=== PATIENT | female | born 1970 | race Caucasian/White ===

== ENCOUNTER 2018-01-17 20:55 | Emergency (ER) | payer MEDICAID, SELFPAY ==
[~2018-01-17] VITALS: Ht 162.6 cm; Wt 107.3 kg
[2018-01-17] MEDS ORDERED: arthritis med PO (21:11)
[2018-01-17] MEDS ORDERED: SIMV5TAB5 PO (21:11)
[2018-01-17] MEDS ORDERED: OMEP-110 PO (21:11)
[2018-01-17] MEDS ORDERED: METF500T17 PO (21:11)
[2018-01-17 21:33] LABS: HCG UR SG 1.011 (1.003-1.030); MICROSCOPIC AUTO
[2018-01-17 21:34] LABS: CULTURE INDICATED? YES
[2018-01-17 21:37] LABS: MEAN CORPUSCULAR HEMOGLOBIN 29.7 pg (27.0-34.8); MEAN CORPUSCULAR HGB CONC 33.3 g/dL (32.4-35.8); MEAN CORPUSCULAR VOLUME 89.3 fL (80-100); MEAN PLATELET VOLUME 7.8 fL (7.4-10.4); PLATELET COUNT 292 x10^3/uL (130-400); RED BLOOD COUNT 3.86 x10^6/uL (3.82-5.3); RED CELL DISTRIBUTION WIDTH 15.2 % (9.6-15.2)
[2018-01-17] MEDS ORDERED: IBUPROFEN 200 MG TABLET ONE (21:40)
[2018-01-17] MEDS ORDERED: PHENAZOPYRIDINE 200 MG TABLET ONE (21:40)
[2018-01-17] MEDS ORDERED: ONDANSETRON ODT 4 MG ONE (21:40)
[2018-01-17] MEDS ORDERED: HYDROcodone/APAP 5/325 TABLET ONE ×2 (21:41→22:18)
[2018-01-17 21:48] LABS: ALANINE AMINOTRANSFERASE 31 U/L (12-78); ALBUMIN 2.7 g/dL (3.4-5.0); ANION GAP 8 mmol/L (5-15); CALCIUM 8.3 mg/dL (8.5-10.1); CHLORIDE 107 mmol/L (98-107); CREATININE 0.97 mg/dL (0.55-1.02)
[2018-01-17 21:50] LABS: ALKALINE PHOSPHATASE 108 U/L (45-117); BILIRUBIN,TOTAL 0.6 mg/dL (0.2-1.0); TOTAL PROTEIN 6.9 g/dL (6.4-8.2)
[2018-01-17 21:59] LABS: BASOPHILS # (AUTO) 0.01 x10^3/uL (0-0.1); BASOPHILS % (AUTO) 0 % (0-1); EOSINOPHILS # (AUTO) 0.15 x10^3/uL (0-0.4); EOSINOPHILS % (AUTO) 1 % (1-7); LYMPHOCYTES # (AUTO) 1.44 x10^3/uL (1-3.4); LYMPHOCYTES % (AUTO) 8 % (22-44); MD SCAN; MONOCYTES # (AUTO) 0.57 x10^3/uL (0.2-0.8); MONOCYTES % (AUTO) 3 % (2-9); NEUTROPHILS # (AUTO) 15.88 x10^3/uL (1.8-6.8); NEUTROPHILS % (AUTO) 88 % (42-75)
[2018-01-17] MEDS ORDERED: IBUPROFEN 200 MG TABLET PO ONE (22:00)
[2018-01-17] MEDS ORDERED: HYDROcodone/APAP 5/325 TABLET PO PRN (22:00)
[2018-01-17] MEDS ORDERED: CEFTRIAXONE 1,000 MG IM ONE (22:00)
[2018-01-17] MEDS ORDERED: ONDANSETRON ODT 4 MG PO ONE (22:00)
[2018-01-17] MEDS ORDERED: PHENAZOPYRIDINE 200 MG TABLET PO ONE (22:00)
[2018-01-17] MEDS ORDERED: HYDROcodone/APAP 5/325 TABLET PO ONE (22:00)
[2018-01-17] MEDS ORDERED: LIDOCAINE-MPF 2%, 2ML ONE (22:17)
[2018-01-17] MEDS ORDERED: CEFTRIAXONE 1,000 MG ONE (22:18)
[2018-01-17 22:32] VITALS: BP 124/68
== END 2018-01-17 22:34 | disposition home or self-care (01) ==
LOC: ED 22:16
DX: N30.00 Acute cystitis without hematuria (principal); E11.65 Type 2 diabetes mellitus with hyperglycemia; I10 Essential (primary) hypertension; E78.5 Hyperlipidemia, unspecified; Z90.49 Acquired absence of other specified parts of digestive tract
CPT/HCPCS: 36415; 80053; 81001; 81025; 82962; 83690; 85025; 87077; 87086; 87147; 87186; 96372; 99284; J0696; Q0162

== ENCOUNTER 2018-03-06 12:51 | Inpatient (IN) | payer MEDICAID ==
[~2018-03-06] VITALS: Ht 162.6 cm; Wt 103.2 kg
[~2018-03-06 12:51] MED LIST: METF500T17 PO; OMEP-110 PO; SIMV5TAB5 PO; arthritis med PO
[2018-03-06] MEDS ORDERED: SODIUM CHLORIDE 0.9% 1,000ML IVBOLUS ONE (16:00)
[2018-03-06] MEDS ORDERED: SODIUM CHLORIDE FLUSH 10ML SYR IVF ONE (16:00)
[2018-03-06] MEDS ORDERED: HYDROmorphone 1 MG/ML, 1ML IVPush PRN (16:00)
[2018-03-06 16:03] LABS: CULTURE INDICATED? YES; MICROSCOPIC INDICATED
[2018-03-06 16:14] LABS: BASOPHILS # (AUTO) 0.04 x10^3/uL (0-0.1); BASOPHILS % (AUTO) 0 % (0-1); EOSINOPHILS # (AUTO) 0.07 x10^3/uL (0-0.4); EOSINOPHILS % (AUTO) 1 % (1-7); LYMPHOCYTES % (AUTO) 20 % (22-44); MD NO; MEAN CORPUSCULAR HEMOGLOBIN 29.2 pg (27.0-34.8); MEAN CORPUSCULAR HGB CONC 33.1 g/dL (32.4-35.8); MEAN CORPUSCULAR VOLUME 88.1 fL (80-100); MEAN PLATELET VOLUME 7.6 fL (7.4-10.4); MONOCYTES # (AUTO) 1.24 x10^3/uL (0.2-0.8); MONOCYTES % (AUTO) 8 % (2-9); NEUTROPHILS % (AUTO) 72 % (42-75); PLATELET COUNT 379 x10^3/uL (130-400); RED BLOOD COUNT 3.99 x10^6/uL (3.82-5.3); RED CELL DISTRIBUTION WIDTH 15.5 % (9.6-15.2)
[2018-03-06 16:27] LABS: CHLORIDE 99 mmol/L (98-107)
[2018-03-06 16:28] LABS: ALANINE AMINOTRANSFERASE 29 U/L (12-78); ALBUMIN 3.3 g/dL (3.4-5.0); ANION GAP 8 mmol/L (5-15); CALCIUM 8.8 mg/dL (8.5-10.1); CREATININE 0.93 mg/dL (0.55-1.02)
[2018-03-06] MEDS ORDERED: HYDROmorphone 2 MG/ML, 1ML ONE (16:28)
[2018-03-06 16:32] LABS: ALKALINE PHOSPHATASE 133 U/L (45-117); BILIRUBIN,TOTAL 0.6 mg/dL (0.2-1.0); TOTAL PROTEIN 8.7 g/dL (6.4-8.2)
[2018-03-06] MEDS ORDERED: CEFTRIAXONE PMX 1GM/50ML 50 ML IVPB ONE (18:00)
[2018-03-06] MEDS ORDERED: BISACODYL 10 MG SUPP PR PRN (19:30)
[2018-03-06] MEDS ORDERED: ACETAMINOPHEN 325 MG TABLET PO PRN (19:30)
[2018-03-06] MEDS ORDERED: POLYETHYLENE GLYCOL 17 GM PACKET PO PRN (19:30)
[2018-03-06] MEDS ORDERED: MELO15TA24 PO (19:33)
[2018-03-06] MEDS ORDERED: AMIT25TA PO (19:35)
[2018-03-06 19:40] VITALS: BP 106/67
[2018-03-06 19:52] VITALS: BP 106/67
[2018-03-06] MEDS: KETOROLAC 30 MG/1 ML IVPush PRN (20:12)
[2018-03-06] MEDS: HEPARIN 5,000 UNITS/ML, 1ML SQ SCH (20:12)
[2018-03-06 20:17] LABS: HEMOGLOBIN A1C 6.6 % (4.2-6.3)
[2018-03-06] MEDS: SODIUM CHLORIDE 0.9% 1,000 ML IV SCH (20:29)
[2018-03-06] MEDS: AMITRIPTYLINE 25 MG TABLET PO SCH (20:39)
[2018-03-06] MEDS: ONDANSETRON ODT 4 MG PO PRN (20:39)
[2018-03-06] MEDS: metFORMIN 500 MG TABLET PO SCH (20:40)
[2018-03-06] MEDS: SIMVASTATIN 20 MG TABLET PO SCH (20:40)
[2018-03-06] MEDS ORDERED: OMEPRAZOLE 20 MG CAPSULE.DR ONE (21:02)
[2018-03-06] MEDS: CEFTRIAXONE PMX 1GM/50ML 50 ML IV SCH (21:03)
[2018-03-06] MEDS: OMEPRAZOLE 20 MG CAPSULE.DR PO SCH (21:03)
[2018-03-07] MEDS: KETOROLAC 30 MG/1 ML IVPush PRN ×4 (02:08→22:58)
[2018-03-07 02:15] VITALS: BP 98/63
[2018-03-07] MEDS: SODIUM CHLORIDE 0.9% 1,000 ML IV SCH ×3 (04:08→22:03)
[2018-03-07] MEDS: HEPARIN 5,000 UNITS/ML, 1ML SQ SCH ×3 (04:09→20:26)
[2018-03-07 05:26] LABS: ALANINE AMINOTRANSFERASE 31 U/L (12-78); ALBUMIN 2.6 g/dL (3.4-5.0); ANION GAP 7 mmol/L (5-15); BASOPHILS # (AUTO) 0.05 x10^3/uL (0-0.1); BASOPHILS % (AUTO) 1 % (0-1); CALCIUM 8.2 mg/dL (8.5-10.1); CHLORIDE 106 mmol/L (98-107); CREATININE 0.89 mg/dL (0.55-1.02); EOSINOPHILS # (AUTO) 0.22 x10^3/uL (0-0.4); EOSINOPHILS % (AUTO) 2 % (1-7); LYMPHOCYTES # (AUTO) 2.67 x10^3/uL (1-3.4); LYMPHOCYTES % (AUTO) 25 % (22-44); MD NO; MEAN CORPUSCULAR HEMOGLOBIN 29.2 pg (27.0-34.8); MEAN CORPUSCULAR HGB CONC 32.7 g/dL (32.4-35.8); MEAN CORPUSCULAR VOLUME 89.4 fL (80-100); MEAN PLATELET VOLUME 7.5 fL (7.4-10.4); MONOCYTES # (AUTO) 1.02 x10^3/uL (0.2-0.8); MONOCYTES % (AUTO) 10 % (2-9); NEUTROPHILS # (AUTO) 6.84 x10^3/uL (1.8-6.8); NEUTROPHILS % (AUTO) 63 % (42-75); PLATELET COUNT 331 x10^3/uL (130-400); RED BLOOD COUNT 3.68 x10^6/uL (3.82-5.3); RED CELL DISTRIBUTION WIDTH 15.5 % (9.6-15.2)
[2018-03-07 05:29] LABS: ALKALINE PHOSPHATASE 126 U/L (45-117); BILIRUBIN,TOTAL 0.4 mg/dL (0.2-1.0); TOTAL PROTEIN 7.1 g/dL (6.4-8.2)
[2018-03-07 07:10] VITALS: BP 95/60
[2018-03-07] MEDS: metFORMIN 500 MG TABLET PO SCH ×2 (08:36→16:14)
[2018-03-07] MEDS: OMEPRAZOLE 20 MG CAPSULE.DR PO SCH (08:37)
[2018-03-07] MEDS: SENNA/DOCUSATE TABLET PO SCH (08:38)
[2018-03-07] MEDS ORDERED: MELOXICAM 15 MG TABLET PO SCH (09:00)
[2018-03-07] MEDS: ONDANSETRON ODT 4 MG PO PRN ×2 (10:51→21:03)
[2018-03-07 13:33] VITALS: BP 102/64
[2018-03-07 19:20] VITALS: BP 104/69
[2018-03-07] MEDS: SIMVASTATIN 20 MG TABLET PO SCH (20:26)
[2018-03-07] MEDS: AMITRIPTYLINE 25 MG TABLET PO SCH (20:26)
[2018-03-07] MEDS: CEFTRIAXONE PMX 1GM/50ML 50 ML IV SCH (20:26)
[2018-03-08 01:19] VITALS: BP 117/65
[2018-03-08 04:20] LABS: BASOPHILS # (AUTO) 0.02 x10^3/uL (0-0.1); BASOPHILS % (AUTO) 0 % (0-1); EOSINOPHILS # (AUTO) 0.25 x10^3/uL (0-0.4); EOSINOPHILS % (AUTO) 3 % (1-7); LYMPHOCYTES # (AUTO) 2.86 x10^3/uL (1-3.4); LYMPHOCYTES % (AUTO) 31 % (22-44); MD NO; MEAN CORPUSCULAR HEMOGLOBIN 29.3 pg (27.0-34.8); MEAN CORPUSCULAR VOLUME 88.9 fL (80-100); MEAN PLATELET VOLUME 7.7 fL (7.4-10.4); MONOCYTES # (AUTO) 0.74 x10^3/uL (0.2-0.8); MONOCYTES % (AUTO) 8 % (2-9); NEUTROPHILS # (AUTO) 5.51 x10^3/uL (1.8-6.8); NEUTROPHILS % (AUTO) 59 % (42-75); PLATELET COUNT 347 x10^3/uL (130-400); RED BLOOD COUNT 3.44 x10^6/uL (3.82-5.3); RED CELL DISTRIBUTION WIDTH 14.6 % (9.6-15.2)
[2018-03-08] MEDS: HEPARIN 5,000 UNITS/ML, 1ML SQ SCH ×3 (04:27→20:09)
[2018-03-08 04:29] LABS: ANION GAP 9 mmol/L (5-15); CALCIUM 7.9 mg/dL (8.5-10.1); CHLORIDE 109 mmol/L (98-107); CREATININE 0.69 mg/dL (0.55-1.02)
[2018-03-08] MEDS: SODIUM CHLORIDE 0.9% 1,000 ML IV SCH ×3 (05:25→21:35)
[2018-03-08] MEDS: KETOROLAC 30 MG/1 ML IVPush PRN ×3 (05:25→20:08)
[2018-03-08 07:16] VITALS: BP 134/70
[2018-03-08] MEDS: metFORMIN 500 MG TABLET PO SCH ×2 (07:38→17:05)
[2018-03-08] MEDS: SENNA/DOCUSATE TABLET PO SCH (07:38)
[2018-03-08] MEDS: OMEPRAZOLE 20 MG CAPSULE.DR PO SCH (07:38)
[2018-03-08] MEDS: ERTAPENEM 1 GM in SODIUM CHLORIDE 0.9% 50 ML IV SCH (12:01)
[2018-03-08] MEDS ORDERED: FLUCONAZOLE 100 MG TABLET PO ONE (12:30)
[2018-03-08 13:58] VITALS: BP 121/77
[2018-03-08] MEDS: AMITRIPTYLINE 25 MG TABLET PO SCH (20:08)
[2018-03-08] MEDS: SIMVASTATIN 20 MG TABLET PO SCH (20:09)
[2018-03-08 20:30] VITALS: BP 132/93
[2018-03-09 01:34] VITALS: BP 114/73
[2018-03-09] MEDS: HEPARIN 5,000 UNITS/ML, 1ML SQ SCH ×3 (04:19→19:57)
[2018-03-09] MEDS: SODIUM CHLORIDE 0.9% 1,000 ML IV SCH (04:21)
[2018-03-09 07:10] VITALS: BP 110/70
[2018-03-09] MEDS: OMEPRAZOLE 20 MG CAPSULE.DR PO SCH (08:09)
[2018-03-09] MEDS: SENNA/DOCUSATE TABLET PO SCH (08:09)
[2018-03-09] MEDS: KETOROLAC 30 MG/1 ML IVPush PRN ×2 (08:10→17:17)
[2018-03-09] MEDS: metFORMIN 500 MG TABLET PO SCH ×2 (08:10→17:17)
[2018-03-09] MEDS: ERTAPENEM 1 GM in SODIUM CHLORIDE 0.9% 50 ML IV SCH (12:29)
[2018-03-09 13:58] VITALS: BP 126/81
[2018-03-09] MEDS: AMITRIPTYLINE 25 MG TABLET PO SCH (19:56)
[2018-03-09] MEDS: SIMVASTATIN 20 MG TABLET PO SCH (19:56)
[2018-03-09 20:01] VITALS: BP 118/77
[2018-03-10 01:30] VITALS: BP 110/72
[2018-03-10] MEDS: HEPARIN 5,000 UNITS/ML, 1ML SQ SCH ×3 (04:40→21:33)
[2018-03-10 07:12] VITALS: BP 114/74
[2018-03-10] MEDS: OMEPRAZOLE 20 MG CAPSULE.DR PO SCH (08:19)
[2018-03-10] MEDS: SENNA/DOCUSATE TABLET PO SCH (08:20)
[2018-03-10] MEDS: metFORMIN 500 MG TABLET PO SCH ×2 (08:20→16:39)
[2018-03-10] MEDS: KETOROLAC 30 MG/1 ML IVPush PRN ×3 (08:26→22:40)
[2018-03-10 08:38] VITALS: BP 105/69
[2018-03-10] MEDS: ERTAPENEM 1 GM in SODIUM CHLORIDE 0.9% 50 ML IV SCH (13:30)
[2018-03-10 14:59] VITALS: BP 111/74
[2018-03-10 20:38] VITALS: BP 130/84
[2018-03-10] MEDS: AMITRIPTYLINE 25 MG TABLET PO SCH (21:33)
[2018-03-10] MEDS: SIMVASTATIN 20 MG TABLET PO SCH (21:33)
[2018-03-11 02:09] VITALS: BP 144/79
[2018-03-11] MEDS: KETOROLAC 30 MG/1 ML IVPush PRN (04:46)
[2018-03-11] MEDS: HEPARIN 5,000 UNITS/ML, 1ML SQ SCH ×3 (04:46→21:17)
[2018-03-11] MEDS ORDERED: IBUPROFEN 200 MG TABLET PO PRN (07:30)
[2018-03-11] MEDS: OMEPRAZOLE 20 MG CAPSULE.DR PO SCH (07:39)
[2018-03-11] MEDS: metFORMIN 500 MG TABLET PO SCH ×2 (07:39→18:07)
[2018-03-11] MEDS: SENNA/DOCUSATE TABLET PO SCH (07:39)
[2018-03-11 07:40] VITALS: BP 114/75
[2018-03-11] MEDS: ERTAPENEM 1 GM in SODIUM CHLORIDE 0.9% 50 ML IV SCH (12:05)
[2018-03-11 15:00] VITALS: BP 125/74
[2018-03-11 19:18] VITALS: BP 114/71
[2018-03-11] MEDS: AMITRIPTYLINE 25 MG TABLET PO SCH (21:16)
[2018-03-11] MEDS: SIMVASTATIN 20 MG TABLET PO SCH (21:17)
[2018-03-12 01:10] VITALS: BP 116/73
[2018-03-12] MEDS: HEPARIN 5,000 UNITS/ML, 1ML SQ SCH (06:04)
[2018-03-12] MEDS ORDERED: OMEP-110 PO (07:17)
[2018-03-12] MEDS: metFORMIN 500 MG TABLET PO SCH (07:33)
[2018-03-12] MEDS: OMEPRAZOLE 20 MG CAPSULE.DR PO SCH (07:33)
[2018-03-12] MEDS: SENNA/DOCUSATE TABLET PO SCH (07:33)
[2018-03-12 07:37] VITALS: BP 124/84
[2018-03-12] MEDS: ERTAPENEM 1 GM in SODIUM CHLORIDE 0.9% 50 ML IV SCH (09:12)
== END 2018-03-12 11:07 | disposition home or self-care (01) | DRG 872 ==
LOC: ED 18:09 → 3NW 19:15
PROVIDERS: ADMIT Family Medicine; ATTEND Family Medicine
DX: A41.9 Sepsis, unspecified organism (principal); E44.1 Mild protein-calorie malnutrition; E87.1 Hypo-osmolality and hyponatremia; N39.0 Urinary tract infection, site not specified; F12.90 Cannabis use, unspecified, uncomplicated; E66.9 Obesity, unspecified; K21.9 Gastro-esophageal reflux disease without esophagitis; M19.90 Unspecified osteoarthritis, unspecified site; E78.5 Hyperlipidemia, unspecified; E11.9 Type 2 diabetes mellitus without complications; B95.4 Other streptococcus as the cause of diseases classified elsewhere; B96.20 Unspecified Escherichia coli [E. coli] as the cause of diseases classified elsewhere; Z79.84 Long term (current) use of oral hypoglycemic drugs; Z87.440 Personal history of urinary (tract) infections; Z68.39 Body mass index [BMI] 39.0-39.9, adult; Z91.048 Other nonmedicinal substance allergy status
CPT/HCPCS: 36415; 76770; 80048; 80053; 81001; 83036; 83605; 84703; 85025; 87040; 87077; 87086; 87147; 87186; 96374; 99285; G0378; J0696; J1170; J1335; J1644; J1885; Q0162; J7030